=== PATIENT | male | born 1980 | race African-American/Black ===

== ENCOUNTER 2018-08-06 06:46 | Day surgery (SDC) | payer MEDICAID ==
[~2018-08-06] VITALS: Ht 188 cm; Wt 72.6 kg
[~2018-08-06 06:46] MED LIST: CIPR500S3 PO
[2018-08-06] MEDS ORDERED: LACTATED RINGERS 1,000 ML IV SCH (07:45)
[2018-08-06] MEDS ORDERED: MIDAZOLAM HCL 2 MG/2 ML VIAL ONE (08:41)
[2018-08-06] MEDS ORDERED: FENTANYL CITRATE/PF 50MCG/ML 2ML VIAL ONE (08:41)
[2018-08-06] MEDS ORDERED: PROPOFOL 200MG/20ML VIAL IV ONE (08:42)
[2018-08-06] MEDS ORDERED: SODIUM CHLORIDE 0.9% 10ML VIAL ONE (08:42)
[2018-08-06] MEDS ORDERED: CEFAZOLIN SODIUM 1000MG/VIAL ONE (08:42)
[2018-08-06] MEDS ORDERED: ROCURONIUM BROMIDE 10MG/ML VIAL 5ML IV ONE (08:42)
[2018-08-06] MEDS ORDERED: LIDOCAINE HCL/PF 1% 10 MG/ML 5ML VIAL ONE (08:42)
[2018-08-06] MEDS ORDERED: SKIN ADHESIVE 0.7 GM EA TOP ONE (08:45)
[2018-08-06] MEDS ORDERED: BUPIVACAINE HCL 0.5% (5MG/ML) 50ML ONE (08:45)
[2018-08-06] MEDS ORDERED: DEXAMETHASONE 4MG/ML 1ML VIAL ONE (09:14)
[2018-08-06] MEDS ORDERED: ONDANSETRON HCL 4MG/2ML INJ ONE (09:15)
[2018-08-06] MEDS ORDERED: GLYCOPYRROLATE 0.2 MG/ML 2ML VIAL ONE (09:29)
[2018-08-06] MEDS ORDERED: NEOSTIGMINE METHYLSULFATE 1MG/ML 10 ML VIAL ONE (09:29)
[2018-08-06] MEDS ORDERED: BUPIVACAINE HCL 0.5% 125 ML in ON-Q PM012 DRUG DELIV DEVICE 1 EA IR ONE (09:30)
[2018-08-06] MEDS ORDERED: HYDROMORPHONE HCL/PF 2MG/ML CPJ IV PRN (10:15)
[2018-08-06] MEDS ORDERED: HYDROCODONE/ACETAMINOPHEN 5/325MG TABLET PO PRN (10:30)
== END 2018-08-06 12:42 | disposition home or self-care (01) ==
LOC: OR 06:46
PROVIDERS: ATTEND Surgery
DX: K40.90 Unilateral inguinal hernia, without obstruction or gangrene, not specified as recurrent (principal); G51.0 Bell's palsy; F17.200 Nicotine dependence, unspecified, uncomplicated
CPT/HCPCS: 49505; 71045; C1781; G0168; J0690; J1100; J2250; J2405; J2704; J2710; J3010; J3490